=== PATIENT | male | born 1965 | race Caucasian/White ===

== ENCOUNTER 2021-01-05 18:59 | Emergency (ER) | payer OTHER ==
[~2021-01-05] VITALS: Ht 188 cm; Wt 88.5 kg
[~2021-01-05 18:59] MED LIST: LEVOTHYROXIN0.125 M1 PO; MS CONTIN15 MG PO; PERCOCET 5-3251 EACH PO
[2021-01-05 19:10] VITALS: BP 97/52
== END 2021-01-05 19:31 | disposition left against medical advice (07) ==
LOC: ER 18:59
DX: S61.210A Laceration without foreign body of right index finger without damage to nail, initial encounter (principal); E03.9 Hypothyroidism, unspecified; Z53.21 Procedure and treatment not carried out due to patient leaving prior to being seen by health care provider; X58.XXXA Exposure to other specified factors, initial encounter; Y93.89 Activity, other specified; Y92.89 Other specified places as the place of occurrence of the external cause; Y99.8 Other external cause status